=== PATIENT | male | born 1970 | race Caucasian/White ===

== ENCOUNTER 2018-05-18 11:01 | Emergency (ER) | payer MEDICARE, MEDICAID ==
[~2018-05-18] VITALS: Ht 180.3 cm; Wt 111.1 kg
[2018-05-18] MEDS ORDERED: SODIUM BICARBONATE 8.4% INJ 50ML SYRINGE ONE (11:04)
[2018-05-18] MEDS ORDERED: SODIUM BICARBONATE 8.4 % INJ 50ML VIAL IV ONE (11:30)
== END 2018-05-18 15:40 | disposition expired ==
LOC: ER 11:01
DX: I46.9 Cardiac arrest, cause unspecified (principal)
CPT/HCPCS: 92950